=== PATIENT | female | born 1985 | race Caucasian/White ===

== ENCOUNTER 2017-03-25 16:10 | Emergency (ER) | payer OTHER ==
[~2017-03-25] VITALS: Ht 162.6 cm; Wt 107.0 kg
[2017-03-25 16:14] VITALS: Ht 162.6 cm; Wt 107.0 kg
--- NOTE | 2017-03-25 18:24 | ERD ---
ER Documentation Chief Complaint Date/Time DATE: 03/25/17 TIME: 18:21 Chief Complaint pelvic pain x 1 week, 7 weeks HPI 31-year-old female states that she is approximately 7 weeks comes emergency room with suprapubic pelvic pain for the past 1 week. She describes as sharp, localized, and has been told she had a urinary tract infection this afternoon when she was seen at an outside facility. She has not tried anything for this. She just found out she was today and due to her pain she was referred to the emergency department to rule ectopic . She denies any history of vaginal bleeding. She denies fevers or chills, shortness of breath, dizziness. ROS All systems reviewed and are negative except as per history of present illness. Medications Home Meds Active Scripts Acetaminophen* (Tylophen*) 500 Mg Capsule, 1 CAP PO Q6H Y for PAIN AND OR ELEVATED TEMP, #20 CAP Prov:AARON COSBY PA-C 03/25/17 Allergies Allergies: Coded Allergies: No Known Allergy (Unverified , 03/25/17) PMhx/Soc Medical and Surgical Hx: pt denies Medical Hx History of Surgery: Yes (Cholecystectomy) Hx Alcohol Use: No Hx Substance Use: No Hx Tobacco Use: No Physical Exam Vitals Vital Signs Date Time Temp Pulse Resp B/P Pulse Ox O2 Delivery O2 Flow Rate FiO2 03/25/17 16:14 99.0 112 18 160/98 98 Physical Exam General: Well-developed, well-nourished. The patient appears in no acute distress. HEENT: Head is normocephalic, atraumatic. No scleral icterus. Neck: Supple. Nontender. Lungs: Clear to auscultation. Normal air movement. Heart: Regular rate and rhythm. S1 and S2 are normal. No murmurs, gallops, or rubs. Abdomen: Soft, suprapubic tenderness nondistended. Bowel sounds are normoactive. : All disclose, no bleeding, no CMT tenderness. Extremities: No clubbing or cyanosis. Normal pulses. Moving extremities x 4. No weakness. Neurologic: Alert and oriented 3. No focal deficits. Skin: Normal turgor. No rash or lesions. Result Diagram: 03/25/17 3376 Results 24 hrs Laboratory Tests Test 03/25/17 18:45 White Blood Count 14.310^3/ul Red Blood Count 4.6210^6/ul Hemoglobin 13.2g/dl Hematocrit 38.4% Mean Corpuscular Volume 83.1fl Mean Corpuscular Hemoglobin 28.6pg Mean Corpuscular Hemoglobin Concent 34.4g/dl Red Cell Distribution Width 13.0% Platelet Count 68729^3/UL Mean Platelet Volume 9.2fl Neutrophils % 74.2% Lymphocytes % 18.2% Monocytes % 6.2% Eosinophils % 0.6% Basophils % 0.2% Nucleated Red Blood Cells % 0.0/100WBC Neutrophils # 10.610^3/ul Lymphocytes # 2.610^3/ul Monocytes # 0.910^3/ul Eosinophils # 0.110^3/ul Basophils # 0.010^3/ul Nucleated Red Blood Cells # 0.010^3/ul Urine Color YELLOW Urine Clarity SLIGHTLY CLOUDY Urine pH 7.0 Urine Specific [place] 1.012 Urine Ketones NEGATIVEmg/dL Urine Nitrite NEGATIVEmg/dL Urine Bilirubin NEGATIVEmg/dL Urine Urobilinogen NEGATIVEmg/dL Urine Leukocyte Esterase NEGATIVELeu/ul Urine Microscopic RBC 1/HPF Urine Microscopic WBC 1/HPF Urine Squamous Epithelial Cells FEW/HPF Urine Bacteria FEW/HPF Urine Hemoglobin 2+mg/dL Urine Glucose NEGATIVEmg/dL Urine Total Protein NEGATIVEmg/dl Beta HCG, Quantitative 1895.6mIU/ml Current Medications Medications (Trade) Dose Ordered Sig/[place] Route PRN Reason Start Time Stop Time Status Last Admin Dose Admin Acetaminophen (Tylenol Tab) 650 mg ONCE ONCE PO 03/25/17 18:30 03/25/17 18:31 DC 03/25/17 18:41 Procedures/MDM ED course: Patient was medicated with Tylenol. Medical decision making: This 31-year-old female presents with pelvic pain and is , there is evidence of intrauterine gestational sac, there is no pole or yolk sac to confirm intrauterine . Beta quantitative hCG is above the discriminatory zone at approximately 1800. I spoke with the OB , Dr. Toussaint, given that there is intrauterine gestational sac, patient may be discharged home with strict ER return precautions. Ectopic cannot be ruled out at this time and patient was notified. Departure Diagnosis: Primary Impression: Pelvic pain during Condition: Stable AARON COSBY PA-C Mar 25, 2017 18:24
[2017-03-25] MEDS ORDERED: ACETAMINOPHEN 325 MG TAB PO ONE (18:30)
[2017-03-25 18:54] LABS: BASOPHILS % 0.2 % (0.0-2.0); EOSINOPHILS # 0.1 10^3/ul (0.0-0.5); EOSINOPHILS % 0.6 % (0.0-7.0); HEMATOCRIT 38.4 % (37.0-47.0); HEMOGLOBIN 13.2 g/dl (12.0-16.0); LYMPHOCYTES # 2.6 10^3/ul (0.8-2.9); LYMPHOCYTES % 18.2 % (15.0-51.0); MEAN CORPUSCULAR HEMOGLOBIN 28.6 pg (29.0-33.0); MEAN CORPUSCULAR HGB CONC 34.4 g/dl (32.0-37.0); MEAN CORPUSCULAR VOLUME 83.1 fl (82.0-101.0); MEAN PLATELET VOLUME 9.2 fl (7.4-10.4); MONOCYTE # 0.9 10^3/ul (0.3-0.9); MONOCYTES % 6.2 % (0.0-11.0); NEUTROPHIL # 10.6 10^3/ul (1.6-7.5); NEUTROPHILS % 74.2 % (39.0-77.0); PLATELET COUNT 357 10^3/UL (140-415); RED BLOOD COUNT 4.62 10^6/ul (4.20-5.40); WHITE BLOOD COUNT 14.3 10^3/ul (4.8-10.8)
[2017-03-25 18:57] LABS: ADD UMIC YES; UR ASCORBIC ACID NEGATIVE (NEGATIVE); UR BACTERIA FEW /HPF (NONE SEEN); UR BILIRUBIN (Dip) NEGATIVE (NEGATIVE); UR BLOOD (Dip) 2+ mg/dL (NEGATIVE); UR CLARITY SLIGHTLY CLOUDY (CLEAR); UR COLOR YELLOW (YELLOW); UR GLUCOSE (Dip) NEGATIVE (NEGATIVE); UR KETONES (Dip) NEGATIVE (NEGATIVE); UR LEUKOCYTE ESTERASE (Dip) NEGATIVE Leu/ul (NEGATIVE); UR NITRITE (Dip) NEGATIVE (NEGATIVE); UR RBC 1 /HPF (0-5); UR SPECIFIC GRAVITY (Dip) 1.012 (1.003-1.030); UR SQUAMOUS EPITHELIAL CELL FEW /HPF (FEW); UR TOTAL PROTEIN (Dip) NEGATIVE (NEGATIVE); UR UROBILINOGEN (Dip) NEGATIVE (NEGATIVE)
--- NOTE | 2017-03-25 19:07 | RADRPT ---
PROCEDURE: OB Ultrasound. CLINICAL INDICATION: Positive test. Pelvic pain. TECHNIQUE: Ultrasound of the pelvis was performed with transabdominal and transvaginal sonography in the axial and sagittal planes. COMPARISON: No prior study is available for comparison. FINDINGS: There is a single intrauterine gestational sac. pole and yolk sac are not visualized. Mean sac diameter is 0.45 cm. Menstrual age by ultrasound dates is 5 weeks 0 days. This indicates an expected date of delivery of 11/25/2017. The right ovary appears normal measuring 3.9 x 2.2 x 2.7 cm. The left ovary appears normal measuring 3.0 x 1.9 x 2.1 cm. Color Doppler and pulsed Doppler sonography demonstrate normal flow to the ovaries. There is no other pelvic mass or free fluid. IMPRESSION: 1. Single early intrauterine gestational sac. It is too early to visualize pole or yolk sac. Follow-up ultrasound in 2 weeks is advised. 2. Otherwise unremarkable study. RPTAT: QQ .Antonio Barrientos MD, MD Date Time Electronically viewed and signed by .Antonio Barrientos MD, on 03/25/2017 19:06 .R/
[2017-03-25] MEDS ORDERED: ACET500C5 PO (20:24)
== END 2017-03-25 21:00 | disposition home or self-care (01) ==
LOC: FTE 16:10
DX: O26.891 Other specified pregnancy related conditions, first trimester (principal); R10.2 Pelvic and perineal pain; Z3A.01 Less than 8 weeks gestation of pregnancy
CPT/HCPCS: 76801; 76817; 81001; 84702; 85025; 86900; 86901; Z7610; 36415

== ENCOUNTER 2017-03-27 07:14 | Emergency (ER) | payer OTHER ==
[~2017-03-27] VITALS: Ht 162.6 cm; Wt 106.0 kg
[~2017-03-27 07:14] MED LIST: ACET500C5 PO
[2017-03-27 07:17] VITALS: Ht 162.6 cm; Wt 106.0 kg
--- NOTE | 2017-03-27 08:20 | RADRPT ---
PROCEDURE: OB Ultrasound. CLINICAL INDICATION: Positive test. Vaginal bleeding. TECHNIQUE: Ultrasound of the pelvis was performed with transabdominal and transvaginal sonography in the axial and sagittal planes. COMPARISON: No prior study is available for comparison. FINDINGS: There is a single intrauterine gestational sac. pole and yolk sac are not visualized. Mean sac diameter is 0.66 cm. There is a small subchorionic hemorrhage. Menstrual age by ultrasound dates is 5 weeks 2 dates. This indicates an expected date of delivery of 11/25/2017. The right ovary appears normal measuring 4.6 x 2.4 x 2.3 cm. The left ovary appears normal measuring 1.3 x 2.1 x 3.9 cm. Color Doppler and pulsed Doppler sonography demonstrate normal flow to the ovaries. There is no other pelvic mass or free fluid. IMPRESSION: 1. Single early intrauterine gestational sac measuring 0.66 cm. It is too early to visualize pole or yolk sac. Follow-up ultrasound in 2 weeks is advised. 2. Small subchorionic hemorrhage. 3. Otherwise unremarkable study. RPTAT: QQ .Antonio Barrientos MD, MD Date Time Electronically viewed and signed by .Antonio Barrientos MD, on 03/27/2017 08:19 .R/
--- NOTE | 2017-03-27 09:24 | ERD ---
ER Documentation Chief Complaint Date/Time DATE: 03/27/17 TIME: 09:23 Chief Complaint Recheck HCG levels HPI Patient is a 31-year-old female with no medical problems who presents for pelvic pain. The patient was seen 2 days ago for pelvic pain since she is and had a quantitative hCG that was 1800. She had an ultrasound which showed a sac but no pole. The patient was told to return in 2 days for repeat quantitative hCG. She is still having pelvic pain. She denies vaginal bleeding. She said the pain is still there but it is still better. She tried Tylenol for pain. The patient goes to the [facility] for her primary care. ROS All systems reviewed and are negative except as per history of present illness. Medications Home Meds Active Scripts Acetaminophen* (Tylophen*) 500 Mg Capsule, 1 CAP PO Q6H Y for PAIN AND OR ELEVATED TEMP, #20 CAP Prov:AARON COSBY PA-C 03/25/17 Allergies Allergies: Coded Allergies: No Known Allergy (Unverified , 03/27/17) PMhx/Soc History of Surgery: Yes (Cholecystectomy) Hx Alcohol Use: No Hx Substance Use: No Hx Tobacco Use: No FmHx Family History: diabetes Physical Exam Vitals Vital Signs Date Time Temp Pulse Resp B/P Pulse Ox O2 Delivery O2 Flow Rate FiO2 03/27/17 07:17 99.0 92 18 150/70 98 Physical Exam Const: Mild distress secondary to pain Head: Atraumatic Eyes: Normal Conjunctiva ENT: Normal External Ears, Nose and Mouth. Neck: Full range of motion..~ No meningismus. Resp: Clear to auscultation bilaterally Cardio: Regular rate and rhythm, no murmurs Abd: Soft, lower pelvic pain without rebound or guarding Skin: No petechiae or rashes Back: No midline or flank tenderness Ext: No cyanosis, or edema Neur: Awake and alert Psych: Normal Mood and Affect Results 24 hrs Laboratory Tests Test 03/27/17 07:40 Beta HCG, Quantitative 3865.5mIU/ml Procedures/MDM PROCEDURE: OB Ultrasound. CLINICAL INDICATION: Positive test. Vaginal bleeding. TECHNIQUE: Ultrasound of the pelvis was performed with transabdominal and transvaginal sonography in the axial and sagittal planes. COMPARISON: No prior study is available for comparison. FINDINGS: There is a single intrauterine gestational sac. pole and yolk sac are not visualized. Mean sac diameter is 0.66 cm. There is a small subchorionic hemorrhage. Menstrual age by ultrasound dates is 5 weeks 2 dates. This indicates an expected date of delivery of 11/25/2017. The right ovary appears normal measuring 4.6 x 2.4 x 2.3 cm. The left ovary appears normal measuring 1.3 x 2.1 x 3.9 cm. Color Doppler and pulsed Doppler sonography demonstrate normal flow to the ovaries. There is no other pelvic mass or free fluid. IMPRESSION: 1. Single early intrauterine gestational sac measuring 0.66 cm. It is too early to visualize pole or yolk sac. Follow-up ultrasound in 2 weeks is advised. 2. Small subchorionic hemorrhage. 3. Otherwise unremarkable study. RPTAT: QQ .Antonio Barrientos MD, Date Time Electronically viewed and signed by .Antonio Barrientos MD, MD on 03/27/2017 08:19 Quantitative hCG is over 3800. Patient is a 31-year-old female presents with pelvic pain and . Ultrasound shows an early IUP but no pole or yolk sac. Quantitative hCG has doubled over the last 48 hours which may mean that this is a normal . However the potential for miscarriage is still there. At this point ectopic . I believe outpatient management is appropriate but the patient will need follow-up with her clinic within 1-2 weeks and will need a repeat ultrasound. Departure Diagnosis: Primary Impression: Threatened Condition: Fair Patient Instructions: Possible Miscarriage (Threatened ) Additional Instructions: Llame al doctor nombrado caba (Referral Sources) MAANA y chichi teresa LOWELL PARA DENTRO DE TERESA SEMANA. Dgale a la secretaria que nosotros le instruimos hacer esta lowell.Avise o llame si stewart condicin se empeora antes de la lowell. JEFFY BLOUNT MD Mar 27, 2017 09:24
== END 2017-03-27 09:07 | disposition home or self-care (01) ==
LOC: FTE 07:14
DX: O20.0 Threatened abortion (principal); Z3A.01 Less than 8 weeks gestation of pregnancy
CPT/HCPCS: 76801; 76817; 84702; Z7502

== ENCOUNTER 2017-05-16 11:13 | Emergency (ER) | payer OTHER ==
[~2017-05-16] VITALS: Ht 162.6 cm; Wt 104.5 kg
[2017-05-16 11:14] VITALS: Ht 162.6 cm; Wt 104.5 kg
--- NOTE | 2017-05-16 13:13 | RADRPT ---
PROCEDURE: US OB. CLINICAL INDICATION: Vaginal bleeding in . TECHNIQUE: Transabdominal and endovaginal imaging of the gravid uterus is available for review COMPARISON: OB ultrasound dated 03/27/2017 FINDINGS: There is a single intrauterine with a crown-rump length of 1.7 cm, giving an estimated ges tational age of 9 weeks 2 days by ultrasound criteria. No heart tones are detected. No subch orionic hemorrhage is identified. The ovaries are unremarkable. IMPRESSION: Single intrauterine with an estimated gestational age of 9 weeks 2 days by ultrasound crit eria. No heart tones are detected. There has been less than expected interval growth when co mpared to the prior examination. Findings are compatible with early failed . RPTAT: HH .Odalis Perez MD, Date Time Electronically viewed and signed by .Odalis Perez MD, on 05/16/2017 13:13 .G/
[2017-05-16 13:23] LABS: BASOPHILS % 0.1 % (0.0-2.0); EOSINOPHILS # 0.2 10^3/ul (0.0-0.5); HEMATOCRIT 38.8 % (37.0-47.0); LYMPHOCYTES # 1.8 10^3/ul (0.8-2.9); MEAN CORPUSCULAR HEMOGLOBIN 28.4 pg (29.0-33.0); MEAN CORPUSCULAR HGB CONC 33.5 g/dl (32.0-37.0); MEAN CORPUSCULAR VOLUME 84.7 fl (82.0-101.0); MEAN PLATELET VOLUME 9.6 fl (7.4-10.4); MONOCYTE # 0.5 10^3/ul (0.3-0.9); MONOCYTES % 5.6 % (0.0-11.0); NEUTROPHIL # 6.9 10^3/ul (1.6-7.5); NEUTROPHILS % 73.1 % (39.0-77.0); PLATELET COUNT 311 10^3/UL (140-415); RED BLOOD COUNT 4.58 10^6/ul (4.20-5.40); RED CELL DISTRIBUTION WIDTH 13.2 % (11.5-14.5); WHITE BLOOD COUNT 9.5 10^3/ul (4.8-10.8)
[2017-05-16 13:25] LABS: ADD UMIC YES; UR ASCORBIC ACID 40 mg/dL (NEGATIVE); UR BILIRUBIN (Dip) NEGATIVE (NEGATIVE); UR BLOOD (Dip) 1+ mg/dL (NEGATIVE); UR CLARITY SLIGHTLY CLOUDY (CLEAR); UR COLOR YELLOW (YELLOW); UR GLUCOSE (Dip) NEGATIVE (NEGATIVE); UR KETONES (Dip) NEGATIVE (NEGATIVE); UR LEUKOCYTE ESTERASE (Dip) NEGATIVE Leu/ul (NEGATIVE); UR NITRITE (Dip) NEGATIVE (NEGATIVE); UR RBC 0 /HPF (0-5); UR SPECIFIC GRAVITY (Dip) 1.021 (1.003-1.030); UR SQUAMOUS EPITHELIAL CELL FEW /HPF (FEW); UR TOTAL PROTEIN (Dip) NEGATIVE (NEGATIVE); UR UROBILINOGEN (Dip) NEGATIVE (NEGATIVE)
--- NOTE | 2017-05-16 14:27 | ERD ---
ER Documentation Chief Complaint Date/Time DATE: 05/16/17 TIME: 14:23 Chief Complaint VAGINAL BLEEDING AND BACK PAIN - LMP 02/01/17 HPI 31 year old female comes in [place] with last menstrual period February 01 with vaginal bleeding and back pain. She states that she has had a very small amount of bleeding, and no longer has had. She denies she noted that this morning. Patient has had 2 other pelvic ultrasound, at 6 weeks she states that she did see a heartbeat, and then 2 days ago she had an ultrasound done that did not show any evidence of a heartbeat and she was told that the sac looks smaller than it should be. She has not had any fevers, chills, dizziness. ROS All systems reviewed and are negative except as per history of present illness. Medications Home Meds Active Scripts Acetaminophen* (Tylophen*) 500 Mg Capsule, 1 CAP PO Q6H Y for PAIN AND OR ELEVATED TEMP, #20 CAP Prov:AARON COSBY PA-C 03/25/17 Allergies Allergies: Coded Allergies: No Known Allergy (Unverified , 03/27/17) PMhx/Soc History of Surgery: Yes (Cholecystectomy) Hx Alcohol Use: No Hx Substance Use: No Hx Tobacco Use: No Physical Exam Vitals Vital Signs Date Time Temp Pulse Resp B/P Pulse Ox O2 Delivery O2 Flow Rate FiO2 05/16/17 11:14 98.7 91 19 157/91 96 Physical Exam General: Well-developed, well-nourished. The patient appears in no acute distress. HEENT: Head is normocephalic, atraumatic. No scleral icterus. Neck: Supple. Nontender. Lungs: Clear to auscultation. Normal air movement. Heart: Regular rate and rhythm. S1 and S2 are normal. No murmurs, gallops, or rubs. Abdomen: Soft, nontender, nondistended. Bowel sounds are normoactive. Extremities: No clubbing or cyanosis. Normal pulses. Moving extremities x 4. No weakness. Neurologic: Alert and oriented 3. No focal deficits. Skin: Normal turgor. No rash or lesions. Result Diagram: 05/16/17 1305 Results 24 hrs Laboratory Tests Test 05/16/17 13:05 White Blood Count 9.510^3/ul Red Blood Count 4.5810^6/ul Hemoglobin 13.0g/dl Hematocrit 38.8% Mean Corpuscular Volume 84.7fl Mean Corpuscular Hemoglobin 28.4pg Mean Corpuscular Hemoglobin Concent 33.5g/dl Red Cell Distribution Width 13.2% Platelet Count 09920^3/UL Mean Platelet Volume 9.6fl Neutrophils % 73.1% Lymphocytes % 19.0% Monocytes % 5.6% Eosinophils % 2.0% Basophils % 0.1% Nucleated Red Blood Cells % 0.0/100WBC Neutrophils # 6.910^3/ul Lymphocytes # 1.810^3/ul Monocytes # 0.510^3/ul Eosinophils # 0.210^3/ul Basophils # 0.010^3/ul Nucleated Red Blood Cells # 0.010^3/ul Urine Color YELLOW Urine Clarity SLIGHTLY CLOUDY Urine pH 5.0 Urine Specific [place] 1.021 Urine Ketones NEGATIVEmg/dL Urine Nitrite NEGATIVEmg/dL Urine Bilirubin NEGATIVEmg/dL Urine Urobilinogen NEGATIVEmg/dL Urine Leukocyte Esterase NEGATIVELeu/ul Urine Microscopic RBC 0/HPF Urine Microscopic WBC 2/HPF Urine Squamous Epithelial Cells FEW/HPF Urine Hemoglobin 1+mg/dL Urine Glucose NEGATIVEmg/dL Urine Total Protein NEGATIVEmg/dl Beta HCG, Quantitative 1487.7mIU/ml DIAGNOSTIC IMAGING REPORT Patient: RADHA SOLANO : 1985 Age: 31 Sex: F MR #: [id number] DOS: 05/16/17 1248 Ordering MD: AARON COSBY PA-C Location: [facility] Room/Bed: PROCEDURE: US OB. CLINICAL INDICATION: Vaginal bleeding in . TECHNIQUE: Transabdominal and endovaginal imaging of the gravid uterus is available for review COMPARISON: OB ultrasound dated 03/27/2017 FINDINGS: There is a single intrauterine with a crown-rump length of 1.7 cm, giving an estimated gestational age of 9 weeks 2 days by ultrasound criteria. No heart tones are detected. No subchorionic hemorrhage is identified. The ovaries are unremarkable. IMPRESSION: Single intrauterine with an estimated gestational age of 9 weeks 2 days by ultrasound criteria. No heart tones are detected. There has been less than expected interval growth when compared to the prior examination. Findings are compatible with early failed . RPTAT: HH .Odalis Perez MD, MD Date Time Electronically viewed and signed by .Odalis Perez MD, on 05/16/2017 13 :13 .G/ Procedures/MDM 31-year-old female comes in with an intrauterine , size is measured to be at 9 weeks and 2 days without evidence of heart tones. This is patient 's second pelvic ultrasound this week without any heart tones. This is likely a threatened versus a failed . She was given copies of her ultrasound and her blood work and was advised to follow-up with her OB in the next 3-4 days. There are no signs of ectopic . Patient is type and Rh + without indication RhoGam. Departure Diagnosis: Primary Impression: Threatened Condition: Good Patient Instructions: Possible Miscarriage (Threatened ) Additional Instructions: Patient was advised to follow-up with their OB in 3-4 days for a recheck examination. If they were to develop any worsening symptoms sooner, including heavy vaginal bleeding or pelvic pain, they are to return to the ER for further evaluation. AARON COSBY PA-C May 16, 2017 14:27
== END 2017-05-16 14:26 | disposition home or self-care (01) ==
LOC: FTE 11:13
DX: O20.0 Threatened abortion (principal); Z3A.09 9 weeks gestation of pregnancy
CPT/HCPCS: 36415; 76801; 81001; 84702; 85025; 86900; 86901; Z7502

== ENCOUNTER → 2017-05-17 | Day surgery (SDC) | payer OTHER ==
[2017-05-17] VITALS (10 sets, daily range): BP systolic 115–121; BP diastolic 60–72; PULSE 74–95; RESP 12–22; TEMP 98.4; Ht 162.6 cm; Wt 103.0 kg
[~2017-05-17] VITALS: Ht 162.6 cm; Wt 103.0 kg
[~2017-05-17] MED LIST changes: +DIPHENHYDRAMINE 50 MG INJ IV PRN; +FENTAnyl 50 MCG/ML VIAL IV PRN; +FENTAnyl 50 MCG/ML VIAL ONE; +HYDROmorphONE (0.2 MG/ML) 10ML SYG IV PRN; +HYDROmorphONE 1 MG/ML SYG IV STA; +LIDOCAINE 2% (SDV) 5 ML INJ ONE; +MEPERIDINE 25 MG INJ IV PRN; +METOCLOPRAMIDE 10 MG INJ IV ONE; +METOCLOPRAMIDE 10 MG INJ IV PRN; +ONDANSETRON 4 MG INJ IV PRN; +ONDANSETRON 4 MG INJ IV STA; +ONDANSETRON 4 MG INJ ONE; +OXYTOCIN 10 UNIT INJ ONE; +PROPOFOL 20 ML ONE; +SOD CHLORIDE 0.9% 1,000 ML IV ONE; +SUCCINYLCHOLINE CHLORIDE 100 MG/5 ML SYG IV ONE; +SUGAMMADEX SODIUM 200 MG/2 ML VIAL IV ONE; +morphine 4 MG/ML VIAL IV STA
[2017-05-17 01:40] LABS: BASOPHILS % 0.2 % (0.0-2.0); EOSINOPHILS # 0.2 10^3/ul (0.0-0.5); EOSINOPHILS % 1.6 % (0.0-7.0); HEMATOCRIT 39.6 % (37.0-47.0); LYMPHOCYTES # 3.3 10^3/ul (0.8-2.9); MEAN CORPUSCULAR HEMOGLOBIN 27.9 pg (29.0-33.0); MEAN CORPUSCULAR HGB CONC 32.8 g/dl (32.0-37.0); MEAN PLATELET VOLUME 9.7 fl (7.4-10.4); MONOCYTE # 1.1 10^3/ul (0.3-0.9); MONOCYTES % 7.7 % (0.0-11.0); NEUTROPHIL # 9.2 10^3/ul (1.6-7.5); NEUTROPHILS % 66.2 % (39.0-77.0); PLATELET COUNT 318 10^3/UL (140-415); RED BLOOD COUNT 4.66 10^6/ul (4.20-5.40); RED CELL DISTRIBUTION WIDTH 13.5 % (11.5-14.5); WHITE BLOOD COUNT 13.8 10^3/ul (4.8-10.8)
--- NOTE | 2017-05-17 02:43 | RADRPT ---
PROCEDURE: US OB. CLINICAL INDICATION: Vaginal bleeding, , pain TECHNIQUE: Transabdominal views of the pelvis are available for review. COMPARISON: 05/16/2017 FINDINGS: The intrauterine gestational sac is in the lower uterine body and lower uterine segment . [place]-rump length:1.78 cm heart rate:No embryonic heart activity seen. Ultrasound estimated gestational age based on embryo crown-rump length:8 weeks 2 days Neither ovary seen. No adnexal mass or free intrapelvic fluid is seen. IMPRESSION: Failed intrauterine . The intrauterine gestational sac is in the lower uterine body and lo wer uterine segment which could be secondary to spontaneous in progress. RPTAT: HJES .Jonathan Major MD, MD Date Time Electronically viewed and signed by .Jonathan Major MD, on 05/17/2017 02:43 .S/
--- NOTE | 2017-05-17 03:01 | ERD ---
ER Documentation Chief Complaint Date/Time DATE: 05/17/17 Chief Complaint Vaginal bleeding, . Seen this AM for same symptoms. Increased bleeding. ROS All systems reviewed and are negative except as per history of present illness. Medications Home Meds Active Scripts Acetaminophen* (Tylophen*) 500 Mg Capsule, 1 CAP PO Q6H Y for PAIN AND OR ELEVATED TEMP, #20 CAP Prov:AARON COSBY PA-C 03/25/17 Allergies Allergies: Coded Allergies: No Known Allergy (Unverified , 03/27/17) PMhx/Soc Medical and Surgical Hx: pt denies Medical Hx, pt denies Surgical Hx History of Surgery: Yes (Cholecystectomy) Hx Alcohol Use: No Hx Substance Use: No Hx Tobacco Use: No Physical Exam Vitals Vital Signs Date Time Temp Pulse Resp B/P Pulse Ox O2 Delivery O2 Flow Rate FiO2 05/17/17 00:44 98.4 81 20 134/91 100 Physical Exam Const: [] Head: Atraumatic Eyes: Normal Conjunctiva ENT: Normal External Ears, Nose and Mouth. Neck: Full range of motion..~ No meningismus. Resp: Clear to auscultation bilaterally Cardio: Regular rate and rhythm, no murmurs Abd: Soft, non tender, non distended. Normal bowel sounds Skin: No petechiae or rashes Back: No midline or flank tenderness Ext: No cyanosis, or edema Neur: Awake and alert Psych: Normal Mood and Affect Result Diagram: 05/17/17 0120 Results 24 hrs Laboratory Tests Test 05/17/17 01:20 White Blood Count 13.810^3/ul Red Blood Count 4.6610^6/ul Hemoglobin 13.0g/dl Hematocrit 39.6% Mean Corpuscular Volume 85.0fl Mean Corpuscular Hemoglobin 27.9pg Mean Corpuscular Hemoglobin Concent 32.8g/dl Red Cell Distribution Width 13.5% Platelet Count 40453^3/UL Mean Platelet Volume 9.7fl Neutrophils % 66.2% Lymphocytes % 24.0% Monocytes % 7.7% Eosinophils % 1.6% Basophils % 0.2% Nucleated Red Blood Cells % 0.0/100WBC Neutrophils # 9.210^3/ul Lymphocytes # 3.310^3/ul Monocytes # 1.110^3/ul Eosinophils # 0.210^3/ul Basophils # 0.010^3/ul Nucleated Red Blood Cells # 0.010^3/ul Beta HCG, Quantitative 1165.7mIU/ml Current Medications Medications (Trade) Dose Ordered Sig/[place] Route PRN Reason Start Time Stop Time Status Last Admin Dose Admin Ondansetron HCl (Zofran Inj) 4 mg ONCE STAT IV 05/17/17 01:09 05/17/17 01:10 DC 05/17/17 01:30 Morphine Sulfate (morphine) 4 mg ONCE STAT IV 05/17/17 01:09 05/17/17 01:10 DC 05/17/17 01:27 Morphine Sulfate (morphine) 4 mg ONCE STAT IV 05/17/17 01:41 05/17/17 01:42 DC 05/17/17 02:13 Ondansetron HCl 4 mg 4 mg ONCE STAT IV 05/17/17 02:45 05/17/17 02:46 DC Sodium Chloride 1,000 ml @ 1,000 mls/hr Q1H ONCE IV 05/17/17 03:00 05/17/17 03:59 Sodium Chloride (NS) 1,000 ml @ 1,000 mls/hr Q1H ONCE IV 05/17/17 03:00 05/17/17 03:59 Hydromorphone HCl (Dilaudid) 1 mg ONCE STAT IV 05/17/17 02:49 05/17/17 02:50 DC Departure Condition: Stable RACHEL GRANADOS PA-C May 17, 2017 03:01
--- NOTE | 2017-05-17 03:01 | ERA ---
ER Documentation Chief Complaint Date/Time DATE: 05/17/17 Chief Complaint Vaginal bleeding, . Seen this AM for same symptoms. Increased bleeding. HPI The patient is a 31-year-old female, A0, who presents to the emergency department with complaint of vaginal bleeding. The patient reports that her last menstrual period was 02/01/2017, and she believes that she is approximately 12 weeks . The patient states that this morning she developed vaginal bleeding. Therefore, she presented to the emergency department, at which time laboratory testing and ultrasound imaging was performed. Beta hCG was noted to be 1487.7. Ultrasound performed revealed single intrauterine with an estimated gestational age of 9 weeks 2 days by ultrasound criteria. No heart tones were detected. Patient was noted to be Rh+, and therefore RhoGam was not indicated. She was discharged home with a diagnosis of threatened , and advised that her symptoms are likely consistent with failed . The patient reports that upon returning home her bleeding had resolved. However, at approximately 7:00 PM tonight she developed recurrent, but significantly worsening vaginal bleeding with associated passage of clots. She reports significant associated pain and cramping, rating her current discomfort as 8/10, prompting the visit to the emergency department. She denies any fevers, sweats, chills. Admits to nausea but denies vomiting. Denies diarrhea. Denies black or bloody stools. Denies dysuria, flank pain, chest pain, palpitations, shortness of breath or lower extremity swelling. The patient last ate/drank anything at 7:00 pm. ROS All systems reviewed and are negative except as per history of present illness. Medications Home Meds Active Scripts Acetaminophen* (Tylophen*) 500 Mg Capsule, 1 CAP PO Q6H Y for PAIN AND OR ELEVATED TEMP, #20 CAP Prov:AARON COSBY PA-C 03/25/17 Allergies Allergies: Coded Allergies: No Known Allergy (Unverified , 03/27/17) PMhx/Soc Medical and Surgical Hx: pt denies Medical Hx, pt denies Surgical Hx History of Surgery: Yes (Cholecystectomy) Hx Alcohol Use: No Hx Substance Use: No Hx Tobacco Use: No Physical Exam Vitals Vital Signs Date Time Temp Pulse Resp B/P Pulse Ox O2 Delivery O2 Flow Rate FiO2 05/17/17 03:10 95 20 130/85 100 Room Air 05/17/17 00:44 98.4 81 20 134/91 100 Physical Exam GENERAL: Well-developed, well-nourished, female, in mild to moderate distress secondary to pain. HEENT: Head is normocephalic, atraumatic. No scleral pallor or icterus. Conjunctiva pink. Moist mucous membranes. NECK: Supple. RESPIRATORY: Lungs are clear to auscultation bilaterally. No rales, rhonchi or wheezing. Equal breath sounds. Normal expiratory effort. CARDIOVASCULAR: Regular rate and rhythm. S1 and S2 normal. Distal pulses are palpable, 2+ bilaterally. Capillary refill is less than 2 seconds. GASTROINTESTINAL: Abdomen is soft, non-tender, and non-distended. Normal bowel sounds. GENITOURINARY: Few blood clots within vaginal vault. POC within cervical os, which is open. No lacerations. FLANK: No CVA tenderness. BACK: No midline tenderness. EXTREMITIES: No clubbing, cyanosis, or edema. Moving all extremities. Muscle tone is normal. No focal swelling or erythema. NEUROLOGIC: The patient is alert, awake, and oriented x 3. INTEGUMENT: Skin is intact. Warm and dry. PSYCHIATRIC: Cooperative. Result Diagram: 05/17/17 0120 Results 24 hrs Laboratory Tests Test 05/17/17 01:20 White Blood Count 13.810^3/ul Red Blood Count 4.6610^6/ul Hemoglobin 13.0g/dl Hematocrit 39.6% Mean Corpuscular Volume 85.0fl Mean Corpuscular Hemoglobin 27.9pg Mean Corpuscular Hemoglobin Concent 32.8g/dl Red Cell Distribution Width 13.5% Platelet Count 24348^3/UL Mean Platelet Volume 9.7fl Neutrophils % 66.2% Lymphocytes % 24.0% Monocytes % 7.7% Eosinophils % 1.6% Basophils % 0.2% Nucleated Red Blood Cells % 0.0/100WBC Neutrophils # 9.210^3/ul Lymphocytes # 3.310^3/ul Monocytes # 1.110^3/ul Eosinophils # 0.210^3/ul Basophils # 0.010^3/ul Nucleated Red Blood Cells # 0.010^3/ul Beta HCG, Quantitative 1165.7mIU/ml Current Medications Medications (Trade) Dose Ordered Sig/[place] Route PRN Reason Start Time Stop Time Status Last Admin Dose Admin Ondansetron HCl (Zofran Inj) 4 mg ONCE STAT IV 05/17/17 01:09 05/17/17 01:10 DC 05/17/17 01:30 Morphine Sulfate (morphine) 4 mg ONCE STAT IV 05/17/17 01:09 05/17/17 01:10 DC 05/17/17 01:27 Morphine Sulfate (morphine) 4 mg ONCE STAT IV 05/17/17 01:41 05/17/17 01:42 DC 05/17/17 02:13 Ondansetron HCl 4 mg 4 mg ONCE STAT IV 05/17/17 02:45 05/17/17 02:46 DC 05/17/17 02:45 Sodium Chloride 1,000 ml @ 1,000 mls/hr Q1H ONCE IV 05/17/17 03:00 05/17/17 03:59 05/17/17 02:45 Sodium Chloride (NS) 1,000 ml @ 1,000 mls/hr Q1H ONCE IV 05/17/17 03:00 05/17/17 03:59 Hydromorphone HCl (Dilaudid) 1 mg ONCE STAT IV 05/17/17 02:49 05/17/17 02:50 DC 05/17/17 02:55 Hydromorphone HCl (Dilaudid) 0.5 mg ONCE STAT IV 05/17/17 03:18 05/17/17 03:19 DC Procedures/MDM EMERGENCY DEPARTMENT COURSE: The patient's case was reviewed and discussed with Dr. Puga, who agrees with the plan of care including labs, treatment and imaging as appropriate. Recommend HOTEL SERVICE SUPERVISOR consultation after pelvic examination. IV access established by nursing staff. Laboratory testing and ultrasound imaging performed. Morphine and Dilaudid were administered for pain control. Zofran and then Reglan given for nausea. On reevaluation, the patient reports no new complaints, but continues to experience significant pain and cramping. CONSULTATION: Dr. Toussaint, HOTEL SERVICE SUPERVISOR on-call. Discussed patient case with Dr. Toussaint, who accepts patient for admission to [facility]. She will take the patient to the OR for suction and curettage. This was discussed with the patient, who agrees with plan. DIAGNOSTIC TESTS AND INTERPRETATION: PROCEDURE: US OB. CLINICAL INDICATION: Vaginal bleeding, , pain TECHNIQUE: Transabdominal views of the pelvis are available for review. COMPARISON: 05/16/2017 FINDINGS: The intrauterine gestational sac is in the lower uterine body and lower uterine segment . [place]-rump length: 1.78 cm heart rate: No embryonic heart activity seen. Ultrasound estimated gestational age based on embryo crown-rump length: 8 weeks 2 days Neither ovary seen. No adnexal mass or free intrapelvic fluid is seen. IMPRESSION:Failed intrauterine . The intrauterine gestational sac is in the lower uterine body and lower uterine segment which could be secondary to spontaneous in progress. .Jonathan Major MD, MD Date Time Electronically viewed and signed by .Jonathan Major MD, MD on 05/17/2017 02:43 MEDICAL DECISION MAKING: This is a 31-year-old female presenting to the Emergency Department complaining of vaginal bleeding. Patient was initially seen in the emergency department this morning, at which time intrauterine was noted with no heart tones. She was discharged home, and her bleeding had resolved. However, this evening her bleeding recurred, with onset of heavier vaginal bleeding and passage of several large clots. She presents to due to heavy bleeding and significant pain she presented to the emergency department for further evaluation. Genitourinary examination revealed POC within the open cervical office. Few blood clots in the vaginal vault. Vital signs were stable. Differential diagnosis includes, but is not limited to, ectopic , cervicitis, fibroids, molar , implantation bleeding, heterotopic , septic , missed , incomplete , inevitable , threatened , complete , coagulopathy, fibroids, adenomyosis, endometriosis, neoplasia, vaginitis, PID, vaginal trauma, dysfunctional uterine bleeding. Hemoglobin and hematocrit are stable, no significant anemia noted. Beta hCG is 1165.7, decreased from 1487.7 from this morning. Rh (+), no indication for RhoGAM. Ultrasound performed revealed a failed intrauterine . The intrauterine gestational sac is noted in the lower uterine body and lower uterine segment which could be secondary to spontaneous in progress. Patient was given several doses of Morphine, followed by several doses of Dilaudid, with persistent pain. Zofran, and then Reglan were administered for antiemetic effect. Given findings of incomplete , severe pain, the patient's case was discussed with Dr. Toussaint, HOTEL SERVICE SUPERVISOR specialist on-call, who recommends suction and curretage. At this time, the patient will be admitted to Med/Surg, under the care of Dr. Toussaint, for further evaluation and management. She will take her to the OR for treatment. Departure Diagnosis: Primary Impression: Incomplete Condition: Stable RACHEL GRANADOS PA-C May 17, 2017 03:01
[2017-05-17 03:27] LABS: INR 0.99; PROTIME 13.1 Sec (12.2-14.2)
--- NOTE | 2017-05-17 05:32 | HP ---
Date/Time of Note Date/Time of Note DATE: 05/17/17 TIME: 05:24 Assessment/Plan VTE Prophylaxis VTE Prophylaxis Intervention: ambulation Lines/Catheters Central line still needed: Yes Assessment/Plan Assessment/Plan missed /impending plan suction curettage HPI/ROS Admit Date/Time Admit Date/Time 05/17/17 Hx of Present Illness 31y.o primigravida LMP February 01 presented ER with vaginal bleeding on 05/16/17 ,U/S done which revealed 9w2d which was small for GA and also noFHT but sent home and came back with profuse vaginal bleeding and severe pelvic cramping pain prepare for suction curettage for impending . ROS vaginal bleeding and pelvic cramping pain Constitutional: improved, no complaints PMH/Family/Social Past Medical History Medical History: no pertinent history Past Surgical History Past Surgical Hx: no surgical history Family History Significant Family History: no pertinent family hx Social History Smoking Status: Never smoker Drug Use: none, cocaine Exam/Review of Systems Vital Signs Vitals Vital Signs Date Time Temp Pulse Resp B/P Pulse Ox O2 Delivery O2 Flow Rate FiO2 05/17/17 04:52 98.4 87 17 118/77 99 Room Air Exam Constitutional: alert, oriented, well developed Genitourinary - Female: other (vaginal bleeding), uterus Labs Result Diagram: 05/17/17 0120 MALACHI DODSON MD May 17, 2017 05:32
--- NOTE | 2017-05-17 05:44 | CONS ---
Date/Time of Note Date/Time of Note DATE: 05/17/17 TIME: 05:34 Assessment/Plan Assessment/Plan Chief Complaint/Hosp Course MISSED /IMPENDING PLAN SUCTION CURETTAGE Problems: Consultation Date/Type/Reason Admit Date/Time 05/17/17 Date of Consultation: May 17, 2017 Type of Consultation: blood bank technician Reason for Consultation vaginal bleeding Hx of Present Illness 31y.o primigravida whos LMP was February 01 was seen at ER on 05/16/17 for vaginal spotting when they did u/s which revealed CRL 1.7 cm which was comparable with 9w2d of GA but FHT, but sent home and she return to ER this am with profuse bleeding with severe pelvic cramping pain. suction curettage is prepared for impending which causing heavy vaginal bleeding and severe pelvic pain. vaginal bleeding and pelvic cramping pain Constitutional: improved, no complaints Genitourinary: bleeding, discharge, dysuria, flank pain, hematuria, no complaints, other Past Medical History Medical History: no pertinent history Past Surgical History Past Surgical Hx: no surgical history Family History Significant Family History: no pertinent family hx Social History Alcohol Use: none Smoking Status: Never smoker Drug Use: none, cocaine Exam/Review of Systems Vital Signs Vitals Vital Signs Date Time Temp Pulse Resp B/P Pulse Ox O2 Delivery O2 Flow Rate FiO2 05/17/17 04:52 98.4 87 17 118/77 99 Room Air Exam Constitutional: alert, oriented, well developed Psych: nl mood/affect, no complaints Head: atraumatic, normocephalic Eyes: EOMI, PERRL, nl conjunctiva, nl lids, nl sclera ENMT: nl external ears & nose, nl lips & teeth, nl nasal mucosa & septum Neck: non-tender, supple Respiratory: clear to auscultation, normal air movement Cardiovascular: nl pulses, regular rate and rhythm Gastrointestinal: nl liver, spleen, non-tender, soft Genitourinary - Female: uterus (enlarged with 1.7cm with fht) Musculoskeletal: nl extremities to inspection, nl gait and stance Extremities: normal pulses Neurological: 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 AND 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 II-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 intact, nl mental status, nl speech, nl strength Skin: nl turgor, No rash or lesions Lymph: nl lymph nodes Results Result Diagram: 05/17/17 0120 Results 24 hrs Laboratory Tests Test 05/17/17 01:20 05/17/17 03:00 05/17/17 03:53 White Blood Count 13.8 #H Red Blood Count 4.66 Hemoglobin 13.0 Hematocrit 39.6 Mean Corpuscular Volume 85.0 Mean Corpuscular Hemoglobin 27.9 L Mean Corpuscular Hemoglobin Concent 32.8 Red Cell Distribution Width 13.5 Platelet Count 318 Mean Platelet Volume 9.7 Neutrophils % 66.2 Lymphocytes % 24.0 Monocytes % 7.7 Eosinophils % 1.6 Basophils % 0.2 Nucleated Red Blood Cells % 0.0 Neutrophils # 9.2 H Lymphocytes # 3.3 H Monocytes # 1.1 H Eosinophils # 0.2 Basophils # 0.0 Nucleated Red Blood Cells # 0.0 Beta HCG, Quantitative 1165.7 Prothrombin Time 13.1 Prothrombin Time Ratio 1.0 INR International Normalized Ratio 0.99 Activated Partial Thromboplast Time 25.0 Bedside Glucose 169 MALACHI DODSON MD May 17, 2017 05:44
--- NOTE | 2017-05-17 07:32 | PD.PPDC ---
PRODUCTION MACHINE TENDER Discharge Instruction Diagnosis Final Diagnosis: incomplete s/p suction curettage Condition Patient Condition: Stable Diet Diet: Resume Regular Diet Activity/Restrictions Activity: May Shower Restrictions: No Sexual Activity Nothing in the Vagina No [place] No Tampons, douche Follow-up Follow-up with Physician: 2, Week/Weeks Return to clinic for PRIMARY COUNSELOR Instructions: Fever greater than 101 Chills Worsening abdominal pain Excessive Vaginal Bleeding More than 2 pads per hour Unable to tolerate diet MALACHI DODSON MD May 17, 2017 07:32
--- NOTE | 2017-05-17 07:38 | SIPON ---
Date/Time of Note Date/Time of Note DATE: 05/17/17 TIME: 07:34 Operative Report Free Text/Dictation missed sent home came in impending by the time of procedure , half of POC on Os Preoperative Diagnosis incomplete Postoperative Diagnosis see pathologic report Operation/Procedure Performed suction curettage Surgeon tiny Anesthesia Type: general Estimated Blood Loss: 10 - 50 ml's Transfusion Required: no Specimens product of conception Grafts/Implants: none Grafts/Implants none Complications: no MALACHI DODSON MD May 17, 2017 07:38
--- NOTE | 2017-05-19 05:41 | OPR ---
DATE OF OPERATION: 05/17/2017 PREOPERATIVE DIAGNOSIS: Missed versus impending . POSTOPERATIVE DIAGNOSIS: Incomplete . OPERATIVE PROCEDURE: Suction curettage. ANESTHESIOLOGIST: ANESTHESIA: General. ESTIMATED BLOOD LOSS: 50 cc. SURGEON: Fay Toussaint MD OPERATIVE PROCEDURE: Under appropriate induction of general anesthesia, patient was placed in dorsal supine position. Perineal area and vagina wall were prepped and draped in usual aseptic manner. During the prepping, there was a small piece of the products of conception, retrieved and the bimanual examination revealed the uterus felt to be approximately 10 weeks of gestational size, soft in consistency. The surface was smooth. There was no palpable adnexal pathology. A weighted speculum introduced, cervix identified. There was tissue which appeared to be products of conception protruding through the cervical os, which was grasped with a ring forceps and cavity was sounded, which was 9.5 cm. The os was already patent enough to submit a 12 size [place]gar dilator without any resistance. The size 9 suction curette was connected to the suction and inserted into the uterine cavity. Entire uterine cavity was curetted followed by using 7 size uterine suction curette, which was again inserted and the entire cavity was suctioned, followed by recheck with sharp curette and additional scanty amount of tissue which was sent. Again 7 suction curette was inserted and curetted and suctioned again. This confirmed the emptiness. Procedure was completed. 10 units of Pitocin was given through the IV infusion. No significant bleeding noted and bimanual examination done again and the uterus was firming up on palpation. Sponge count taken and was correct. The procedure was completed. All the instrument count was correct and the patient withstood the procedure well and was sent to recovery room in stable condition. Dictated By: Fay Toussaint MD /[email or web address] /Document#: [id number]
== END | disposition home or self-care (01) ==
LOC: FTE 00:36 → SDS 05:17
PROVIDERS: ATTEND Obstetrics & Gynecology
DX: O03.4 Incomplete spontaneous abortion without complication (principal); E66.01 Morbid (severe) obesity due to excess calories; Z68.39 Body mass index [BMI] 39.0-39.9, adult; Z90.49 Acquired absence of other specified parts of digestive tract
CPT/HCPCS: 59812; 76801; 82962; 84702; 85025; 85610; 85730; 86850; 86900; 86901; 88305; J1170; J2270; J2405; J2590; J2765; J3010; J7030; Z7512; Z7610; J7999

== ENCOUNTER 2018-07-08 08:39 | Outpatient (CLI) | END 2018-07-08 16:47 | disposition home or self-care (01) ==

== ENCOUNTER 2018-09-19 10:57 | Inpatient (IN) | payer OTHER ==
[~2018-09-19] VITALS: Ht 160 cm; Wt 101.8 kg
[~2018-09-19 10:57] MED LIST changes: -ACET500C5 PO; -DIPHENHYDRAMINE 50 MG INJ IV PRN; -FENTAnyl 50 MCG/ML VIAL IV PRN; -FENTAnyl 50 MCG/ML VIAL ONE; -HYDROmorphONE (0.2 MG/ML) 10ML SYG IV PRN; -HYDROmorphONE 1 MG/ML SYG IV STA; -LIDOCAINE 2% (SDV) 5 ML INJ ONE; -MEPERIDINE 25 MG INJ IV PRN; -METOCLOPRAMIDE 10 MG INJ IV ONE; -METOCLOPRAMIDE 10 MG INJ IV PRN; -ONDANSETRON 4 MG INJ IV PRN; -ONDANSETRON 4 MG INJ IV STA; -ONDANSETRON 4 MG INJ ONE; -OXYTOCIN 10 UNIT INJ ONE; +PREN-93 PO; -PROPOFOL 20 ML ONE; -SOD CHLORIDE 0.9% 1,000 ML IV ONE; -SUCCINYLCHOLINE CHLORIDE 100 MG/5 ML SYG IV ONE; -SUGAMMADEX SODIUM 200 MG/2 ML VIAL IV ONE; -morphine 4 MG/ML VIAL IV STA
[2018-09-19 11:11] VITALS: BP 132/89; PULSE 85; Ht 160 cm; Wt 101.8 kg
--- NOTE | 2018-09-19 13:31 | TRIAGE ---
OB Triage Datetime Report Generated by CPN: 09/19/2018 13:30 Datetime: 09/19/2018 12:25 Labor Evaluation Frequency: occas Monitor Mode: External Duration (sec)2399: 60-80 Quality: Mild Pattern: Normal: <= 5 Contractions in 10 Minutes Resting Tone [place]: Relaxed Heart Rate FHR Baseline Rate: 130 Monitor Mode: External US FHR Baseline Changes: No Baseline Change Variability: Moderate 6-25 bpm Accelerations: 15X15 Decelerations: None Category: Category I Datetime: 09/19/2018 11:15 Assessment Type: Triage Maternal Assessment Level of Consciousness: Fully Conscious DTR's/Clonus: DTRs 2+; No Clonus Headache: Denies Blurred Vision: No Respiratory Effort: Unlabored; Regular Rhythm; Equal Expansion Breath Sounds, Left: Clear and Equal Breath Sounds, Right: Clear and Equal Nausea/Vomiting: Denies RUQ Epigastric Pain: Denies Lower Extremities Edema: None Degree: None Upper Extremities Edema: None Degree: None Facial Edema: None Fall Risk Assessment History of Falling: (0) No Secondary Diagnosis: (0) No Ambulatory Aid: (0) Bedrest/Nurse Assist IV Therapy: (0) No Gait: (0) Normal/Bedrest/Immobile Mental Status: (0) Oriented to Own Ability Fall Score: 0 Fall Risk Score Definition: No Risk: No action required Datetime: 09/19/2018 11:14 Time of Arrival: 09/19/2018 10:53 EGA: 37.4 Arrived By: Ambulatory Arrived From: Home Chief Complaint: DFM AND UC'S Movement: Present Contractions: Irregular Time Contractions Began: 09/19/2018 02:30 Rupture of Membranes: Denies Vaginal Bleeding: None Vaginal Discharge: Denies Recent Sexual Intercouse: Denies Abdominal Trauma: Not Applicable Patient Complaints: Other Additional Patient Complaints: GDM AND ELEVATED LIVER ENZYMES Time Provider Notified: 09/19/2018 13:24 Initial Plan: NST AND BPP Labor Evaluation Frequency: OCCAS Monitor Mode: External Duration (sec)2399: 60-90 Quality: Mild Pattern: Normal: <= 5 Contractions in 10 Minutes Resting Tone [place]: Relaxed Heart Rate FHR Baseline Rate: 135 Monitor Mode: External US Variability: Moderate 6-25 bpm Accelerations: 15X15 Decelerations: None Category: Category I Datetime: 09/19/2018 11:04 Vaginal Exam Dilatation (cms): 1.0 Effacement (%): 70 Station: -2 Exam By: A ANDERSUKACHARLAAN Datetime: 09/16/2018 16:23 Category: Category I Datetime: 09/16/2018 16:08 Stage of : Antepartum Labor Evaluation Frequency: S. NERISSA Monitor Mode: External Pattern: Normal: <= 5 Contractions in 10 Minutes Resting Tone [place]: Relaxed Heart Rate FHR Baseline Rate: 135 Monitor Mode: External US Variability: Moderate 6-25 bpm Accelerations: 15X15 Decelerations: None Category: Category I Pain Presence: None/Denies Pain Type: N/A Datetime: 09/16/2018 16:05 Comments: BACK ON MONITOR AFTER MONITOR Datetime: 09/16/2018 15:07 Stage of : Antepartum Labor Evaluation Frequency: 0 Monitor Mode: External Pattern: Normal: <= 5 Contractions in 10 Minutes Resting Tone [place]: Relaxed Heart Rate FHR Baseline Rate: 145 Monitor Mode: External US Variability: Moderate 6-25 bpm Accelerations: 15X15 Decelerations: None Category: Category I Pain Presence: None/Denies Pain Type: N/A Datetime: 09/16/2018 14:43 Bedside Blood Glucose: 133 Datetime: 09/16/2018 14:17 Stage of : Antepartum Labor Evaluation Frequency: 0 Monitor Mode: External Pattern: Normal: <= 5 Contractions in 10 Minutes Resting Tone [place]: Relaxed Heart Rate FHR Baseline Rate: 145 Monitor Mode: External US Variability: Absent - Undetectable Accelerations: 15X15 Decelerations: None Category: Category I Pain Presence: None/Denies Pain Type: N/A Datetime: 09/16/2018 13:01 Stage of : Antepartum Labor Evaluation Frequency: 0 Pattern: Normal: <= 5 Contractions in 10 Minutes Resting Tone [place]: Relaxed Comments: US ADJUSTED Pain Presence: None/Denies Pain Type: N/A Datetime: 09/16/2018 12:19 Comments: LOSS OFCONTACT PATIENT SITTING UP EATING LUNCH Datetime: 09/16/2018 12:15 Stage of : Antepartum Labor Evaluation Frequency: 0 Monitor Mode: External Pattern: Normal: <= 5 Contractions in 10 Minutes Resting Tone [place]: Relaxed Heart Rate FHR Baseline Rate: 135 Monitor Mode: External US Variability: Moderate 6-25 bpm Accelerations: 15X15 Decelerations: None Category: Category I Pain Presence: None/Denies Pain Type: N/A Datetime: 09/16/2018 11:06 Stage of : Antepartum Labor Evaluation Frequency: 0 Monitor Mode: External Pattern: Normal: <= 5 Contractions in 10 Minutes Resting Tone [place]: Relaxed Heart Rate FHR Baseline Rate: 135 Monitor Mode: External US Variability: Moderate 6-25 bpm Accelerations: 15X15 Decelerations: None Category: Category I Pain Presence: None/Denies Pain Type: N/A Datetime: 09/16/2018 10:13 Bedside Blood Glucose: 98 Datetime: 09/16/2018 10:07 Stage of : Antepartum Labor Evaluation Frequency: X1 Monitor Mode: External Duration (sec)2399: 50 Pattern: Normal: <= 5 Contractions in 10 Minutes Resting Tone [place]: Relaxed Heart Rate FHR Baseline Rate: 135 Monitor Mode: External US Variability: Moderate 6-25 bpm Accelerations: 15X15 Decelerations: None Category: Category I Pain Presence: None/Denies Pain Type: N/A Datetime: 09/16/2018 09:14 Stage of : Antepartum Labor Evaluation Frequency: 0 Monitor Mode: External Pattern: Normal: <= 5 Contractions in 10 Minutes Resting Tone [place]: Relaxed Heart Rate FHR Baseline Rate: 135 Monitor Mode: External US Variability: Moderate 6-25 bpm Accelerations: 10X10 Decelerations: None Category: Category III Pain Presence: None/Denies Pain Type: N/A Datetime: 09/16/2018 07:43 Bedside Blood Glucose: 84 Category: Category II Datetime: 09/16/2018 07:28 Stage of : Antepartum Assessment Type: Ongoing Assessment Maternal Assessment Level of Consciousness: Fully Conscious DTR's/Clonus: DTRs 2+; No Clonus Headache: Denies Blurred Vision: No Respiratory Effort: Unlabored; Regular Rhythm; Equal Expansion Breath Sounds, Left: Clear and Equal Breath Sounds, Right: Clear and Equal Nausea/Vomiting: Denies RUQ Epigastric Pain: Denies Lower Extremities Edema: None Degree: None Upper Extremities Edema: None Degree: None Facial Edema: None Temperature Route: Axillary Fall Risk Assessment History of Falling: (0) No Secondary Diagnosis: (0) No Ambulatory Aid: (0) Bedrest/Nurse Assist IV Therapy: (0) No Gait: (0) Normal/Bedrest/Immobile Mental Status: (0) Oriented to Own Ability Fall Score: 0 Fall Risk Score Definition: No Risk: No action required Labor Evaluation Frequency: 0 Monitor Mode: External Heart Rate FHR Baseline Rate: 145 Monitor Mode: External US Variability: Moderate 6-25 bpm Accelerations: 15X15 Decelerations: None Category: Category I Pain Assessment Pain Scale: 0 Pain Presence: None/Denies Pain Goal: 0 Datetime: 09/16/2018 07:00 Stage of : Antepartum Labor Evaluation Frequency: x1 IN ONE HOUR Monitor Mode: External Duration (sec)2399: 70 Quality: Mild Resting Tone [place]: Relaxed Heart Rate FHR Baseline Rate: 135 Monitor Mode: External US Variability: Moderate 6-25 bpm Accelerations: 15X15 Decelerations: None Pain Assessment Pain Scale: 0 Pain Presence: None/Denies Pain Type: N/A Pain Goal: 3 Datetime: 09/16/2018 06:00 Stage of : Antepartum Labor Evaluation Frequency: OCCASIONAL Monitor Mode: External Duration (sec)2399: 40-60 Quality: Mild Resting Tone [place]: Relaxed Heart Rate FHR Baseline Rate: 125 Monitor Mode: External US Variability: Moderate 6-25 bpm Accelerations: 15X15 Decelerations: None Pain Assessment Pain Scale: 0 Pain Presence: None/Denies Pain Type: N/A Pain Goal: 3 Datetime: 09/16/2018 05:00 Stage of : Antepartum Labor Evaluation Frequency: OCCASIONAL Monitor Mode: External Duration (sec)2399: 60-120 Quality: Mild Resting Tone [place]: Relaxed Heart Rate FHR Baseline Rate: 135 Monitor Mode: External US Variability: Moderate 6-25 bpm Accelerations: 15X15 Decelerations: None Datetime: 09/16/2018 04:00 Stage of : Antepartum Labor Evaluation Frequency: OCCASIONAL Monitor Mode: External Duration (sec)2399: 40-60 Quality: Mild Resting Tone [place]: Relaxed Heart Rate FHR Baseline Rate: 135 Monitor Mode: External US Variability: Moderate 6-25 bpm Accelerations: 15X15 Decelerations: None Comments: SOME LOSS OF CONTACT DUE TO PT CHANGING POSITIONS Datetime: 09/16/2018 03:00 Stage of : Antepartum Labor Evaluation Frequency: OCCASIONAL Monitor Mode: External Duration (sec)2399: 40-60 Quality: Mild Resting Tone [place]: Relaxed Heart Rate FHR Baseline Rate: 135 Monitor Mode: External US Variability: Moderate 6-25 bpm Accelerations: 15X15 Decelerations: None Datetime: 09/16/2018 02:00 Stage of : Antepartum Labor Evaluation Frequency: X3 IN ONE HOUR Monitor Mode: External Duration (sec)2399: 60-70 Quality: Mild Resting Tone [place]: Relaxed Heart Rate FHR Baseline Rate: 135 Monitor Mode: External US Variability: Moderate 6-25 bpm Accelerations: 15X15 Decelerations: None Category: Category I Datetime: 09/16/2018 01:00 Labor Evaluation Frequency: 0 Monitor Mode: External Resting Tone [place]: Relaxed Heart Rate FHR Baseline Rate: 135 Monitor Mode: External US Variability: Moderate 6-25 bpm Accelerations: 15X15 Decelerations: None Category: Category I Datetime: 09/16/2018 00:00 Labor Evaluation Frequency: OCCASS Monitor Mode: External Duration (sec)2399: 40-60 Quality: Mild Pattern: Normal: <= 5 Contractions in 10 Minutes Resting Tone [place]: Relaxed Heart Rate FHR Baseline Rate: 135 Monitor Mode: External US Variability: Moderate 6-25 bpm Accelerations: 15X15 Decelerations: None Category: Category I Pain Presence: None/Denies Datetime: 09/15/2018 23:00 Labor Evaluation Frequency: X4 Monitor Mode: External Duration (sec)2399: 40-80 Quality: Mild Resting Tone [place]: Relaxed Heart Rate FHR Baseline Rate: 135 Monitor Mode: External US Variability: Moderate 6-25 bpm Accelerations: 15X15 Decelerations: None Category: Category I Comments: LOSS OF CONTACT AT TIMES PT WAS IN HER SIDE. Pain Presence: None/Denies Datetime: 09/15/2018 22:02 Bedside Blood Glucose: 110 Datetime: 09/15/2018 22:00 Labor Evaluation Frequency: IRREG Monitor Mode: External Duration (sec)2399: 50-80 Quality: Mild Pattern: Normal: <= 5 Contractions in 10 Minutes Resting Tone [place]: Relaxed Heart Rate FHR Baseline Rate: 140 Monitor Mode: External US Variability: Moderate 6-25 bpm Accelerations: 15X15 Decelerations: Variable Category: Category II Datetime: 09/15/2018 21:00 Labor Evaluation Frequency: IRREG Monitor Mode: External Duration (sec)2399: 50-60 Quality: Mild Pattern: Normal: <= 5 Contractions in 10 Minutes Resting Tone [place]: Relaxed Heart Rate FHR Baseline Rate: 135 Monitor Mode: External US Variability: Moderate 6-25 bpm Accelerations: 15X15 Decelerations: None Category: Category I Datetime: 09/15/2018 20:00 Labor Evaluation Frequency: 4-8 Monitor Mode: External Duration (sec)2399: 50-70 Quality: Mild Pattern: Normal: <= 5 Contractions in 10 Minutes Resting Tone [place]: Relaxed Heart Rate FHR Baseline Rate: 135 Monitor Mode: External US Variability: Moderate 6-25 bpm Accelerations: 15X15 Decelerations: None Category: Category I Datetime: 09/15/2018 19:33 Stage of : Labor Assessment Type: Ongoing Assessment Maternal Assessment Level of Consciousness: Fully Conscious DTR's/Clonus: DTRs 2+; No Clonus Headache: Denies Blurred Vision: No Respiratory Effort: Unlabored; Regular Rhythm; Equal Expansion Breath Sounds, Left: Clear and Equal Breath Sounds, Right: Clear and Equal Nausea/Vomiting: Denies RUQ Epigastric Pain: Denies Lower Extremities Edema: None Degree: None Upper Extremities Edema: None Degree: None Facial Edema: None Temperature Route: Oral Fall Risk Assessment History of Falling: (0) No Secondary Diagnosis: (0) No Ambulatory Aid: (0) Bedrest/Nurse Assist IV Therapy: (20) Yes Gait: (0) Normal/Bedrest/Immobile Mental Status: (0) Oriented to Own Ability Fall Score: 20 Fall Risk Score Definition: No Risk: No action required Pain Assessment Pain Scale: 0 Pain Presence: None/Denies Pain Type: N/A Pain Goal: 3 Datetime: 09/15/2018 18:59 Labor Evaluation Frequency: x2 Monitor Mode: External Duration (sec)2399: 50-70 Quality: Mild Pattern: Normal: <= 5 Contractions in 10 Minutes Resting Tone [place]: Relaxed Contraction Comments: x2 UC during this hour Heart Rate FHR Baseline Rate: 140 Monitor Mode: External US Variability: Moderate 6-25 bpm Accelerations: 15X15 Decelerations: None Category: Category I Pain Presence: None/Denies Datetime: 09/15/2018 18:07 Temperature Route: Oral Labor Evaluation Frequency: x2 Monitor Mode: External Duration (sec)2399: 60-80 Quality: Mild Pattern: Normal: <= 5 Contractions in 10 Minutes Resting Tone [place]: Relaxed Contraction Comments: x2 UC noted this hour Heart Rate FHR Baseline Rate: 140 Monitor Mode: External US Variability: Moderate 6-25 bpm Accelerations: 15X15 Decelerations: None Category: Category I Pain Presence: None/Denies Datetime: 09/15/2018 17:07 Labor Evaluation Frequency: x4 Monitor Mode: External Duration (sec)2399: 60 Quality: Mild Pattern: Normal: <= 5 Contractions in 10 Minutes Resting Tone [place]: Relaxed Contraction Comments: x4 UC noted in this hour Heart Rate FHR Baseline Rate: 140 Monitor Mode: External US Variability: Moderate 6-25 bpm Accelerations: 15X15 Decelerations: None Category: Category I Pain Presence: None/Denies Datetime: 09/15/2018 16:07 Labor Evaluation Frequency: x1 Monitor Mode: External Duration (sec)2399: 50 Quality: Mild Pattern: Normal: <= 5 Contractions in 10 Minutes Resting Tone [place]: Relaxed Contraction Comments: 1 UC noted this hour Heart Rate FHR Baseline Rate: 135 Monitor Mode: External US Variability: Moderate 6-25 bpm Accelerations: 15X15 Decelerations: None Category: Category I Pain Presence: None/Denies Datetime: 09/15/2018 15:07 Labor Evaluation Frequency: x1 Monitor Mode: External Duration (sec)2399: 50 Quality: Mild Pattern: Normal: <= 5 Contractions in 10 Minutes Resting Tone [place]: Relaxed Contraction Comments: x1 noted in this hour Heart Rate FHR Baseline Rate: 140 Monitor Mode: External US Variability: Moderate 6-25 bpm Accelerations: 15X15 Decelerations: None Pain Presence: None/Denies Datetime: 09/15/2018 14:07 Temperature Route: Oral Labor Evaluation Frequency: x3 Monitor Mode: External Duration (sec)2399: 70-100 Quality: Mild Pattern: Normal: <= 5 Contractions in 10 Minutes Resting Tone [place]: Relaxed Contraction Comments: x3 noted during this hour Heart Rate FHR Baseline Rate: 140 Monitor Mode: External US Variability: Moderate 6-25 bpm Accelerations: 15X15 Decelerations: None Category: Category I Pain Presence: None/Denies Datetime: 09/15/2018 13:08 Labor Evaluation Frequency: x2 Monitor Mode: External Duration (sec)2399: 90-110 Quality: Mild Pattern: Normal: <= 5 Contractions in 10 Minutes Resting Tone [place]: Relaxed Contraction Comments: x2 UC noted in this hour Heart Rate FHR Baseline Rate: 140 Monitor Mode: External US Variability: Moderate 6-25 bpm Accelerations: 15X15 Decelerations: None Category: Category I Pain Presence: None/Denies Datetime: 09/15/2018 12:09 Monitor Mode: External Quality: Mild Pattern: Normal: <= 5 Contractions in 10 Minutes Resting Tone [place]: Relaxed Contraction Comments: Uterine irritability noted Heart Rate FHR Baseline Rate: 140 Monitor Mode: External US FHR Baseline Changes: No Baseline Change Variability: Minimal - Undetectable to <=5 bpm Accelerations: 15X15 Decelerations: None Category: Category II Pain Presence: None/Denies Vaginal Exam Dilatation (cms): 1.0 Effacement (%): 50 Station: -3 Exam By: Kwan Parks RN Membrane Status: Intact Datetime: 09/15/2018 11:41 Labor Evaluation Frequency: x2 UC noted in last hour Monitor Mode: External Duration (sec)2399: 50 Quality: Mild Pattern: Normal: <= 5 Contractions in 10 Minutes Resting Tone [place]: Relaxed Contraction Comments: Uterine irritability noted Heart Rate FHR Baseline Rate: 140 Monitor Mode: External US FHR Baseline Changes: No Baseline Change Variability: Moderate 6-25 bpm Accelerations: 15X15 Decelerations: None Category: Category I Pain Presence: None/Denies Datetime: 09/15/2018 10:32 Stage of : Labor Assessment Type: Admission Assessment Time of Arrival: 09/15/2018 10:32 EGA: 37.0 Arrived By: Ambulatory Arrived From: Home Vaginal Bleeding: None Maternal Assessment Level of Consciousness: Fully Conscious DTR's/Clonus: DTRs 2+; No Clonus Headache: Denies Blurred Vision: No Respiratory Effort: Unlabored; Regular Rhythm; Equal Expansion Breath Sounds, Left: Clear and Equal Breath Sounds, Right: Clear and Equal Nausea/Vomiting: Denies RUQ Epigastric Pain: Denies Lower Extremities Edema: Bilateral Lower Extremities Degree: Trace Upper Extremities Edema: Bilateral Upper Extremities Degree: Trace Facial Edema: None Fall Risk Assessment History of Falling: (0) No Secondary Diagnosis: (0) No Ambulatory Aid: (0) Bedrest/Nurse Assist IV Therapy: (0) No Gait: (0) Normal/Bedrest/Immobile Mental Status: (0) Oriented to Own Ability Fall Score: 0 Fall Risk Score Definition: No Risk: No action required Pain Presence: None/Denies Datetime: 07/08/2018 08:54 Fall Score: 0 Fall Risk Score Definition: No Risk: No action required Datetime: 07/08/2018 08:53 EGA: 27.1
[2018-09-19] MEDS ORDERED: MISOPROSTOL 200 MCG TAB PR PRN (14:00)
[2018-09-19] MEDS ORDERED: LIDOCAINE 1% (MPF) 30 ML INJ INJ PRN (14:00)
[2018-09-19] MEDS ORDERED: METHYLERGONOVINE 0.2 MG INJ IM PRN (14:00)
[2018-09-19] MEDS ORDERED: CARBOPROST 250 MCG INJ IM PRN (14:00)
[2018-09-19] MEDS ORDERED: OXYTOCIN 30 UNITS/LR 500 ML IV PRN (14:00)
[2018-09-19] MEDS ORDERED: IBUPROFEN 600 MG TAB PO PRN (14:00)
[2018-09-19] MEDS ORDERED: OXYTOCIN 30 UNITS/LR 500 ML IV SCH ×3 (14:00)
[2018-09-19] MEDS ORDERED: BUTORPHANOL 2 MG INJ IV PRN (14:00)
[2018-09-19] MEDS: LACTATED RINGER'S 1,000 ML IV SCH ×3 (17:32→23:45)
--- NOTE | 2018-09-19 19:50 | PREOPHP ---
DATE OF ADMISSION: 09/19/2018 HISTORY OF PRESENT ILLNESS: Ms. Yanet Oh is a 33-year-old 2, para 0, EDC of 12/2018 intrauterine at 37 weeks and 4 days gestational age, presented to triage for her re gular nonstress test secondary to her history of elevated liver enzymes. She complains of decreased movement with uterine contractions. She had a biophysical profile performed with the findings of 6/8, -2 for breathing. After explaining the risks, benefits and alternatives, the patient agreed to be induced. PAST MEDICAL HISTORY: GDMA. MEDICATIONS: 1. vitamins. 2. Glyburide. OBSTETRICAL HISTORY: Times 1 termination of . PAST SURGICAL HISTORY: None. GYNECOLOGIC HISTORY: 12, regular 3 to 4 days. Denies any sexually transmitted disease. Sexually ac tive with 1 partner. SOCIAL HISTORY: Denies any smoking, drugs or alcohol. FAMILY HISTORY: None. REVIEW OF SYSTEMS: All within normal except history of present illness. PHYSICAL EXAMINATION: HEENT: Within normal. LUNGS: CTA bilateral. CARDIOVASCULAR: S1, S2. Regular rate and rhythm. ABDOMEN: Gravid, nontender. Negative CVA bilateral. EXTREMITIES: Negative edema. No calf tenderness. PELVIC: Vaginal exam: 1 to 2 cm dilated, 80% effaced, -2 station. heart tracing category 1. Tocometer: Irregular contractions. LABORATORY DATA: Significant labs: AST 48, ALT 78. SHOSHANA of 9.4. ASSESSMENT: 1. Intrauterine at 37 weeks and 4 days' gestational age. 2. Decreased movement. 3. Mildly elevated liver enzymes. 4. Decreased biophysical profile. 5. Gestational diabetes mellitus 2. PLAN: Admit patient for induction with Pitocin. Risks, benefits and alternatives were explained. A ll questions were answered. Dictated By: TIARA HUTTON MD ME/JABARI Conf#: [id number] DID#: [id number]
[2018-09-19] MEDS ORDERED: FENTAnyl 2MCG/ML-ROPIV 0.2% 100 ML ONE (23:21)
--- NOTE | 2018-09-19 23:46 | PREAC ---
Date/Time of Note Date/Time of Note DATE: 09/19/18 TIME: 23:44 Anesthesia Eval and Record Evaluation Time Pre-Procedure Interview DATE: 09/19/18 TIME: 23:44 Age 33 Sex female NPO: 8 hrs Preoperative diagnosis IUP Planned procedure L&D Epidural Past Medical History Past Medical History: Includes Cardio: Dyslipidemia Endo: Diabetes GI: Morbid obesity Surgery & Anesthesia Issues No known issue Meds Anticoagulation: No Beta Stephanie within 24 hr: No Reason Beta Stephanie not given: Pt. not on B-Stephanie Reported Medications Vit No.124/Iron/FA ( Vitamin Tablet) 1 Each Tablet, 1 EACH PO DAILY, TAB 07/08/18 Discontinued Scripts Acetaminophen* (Tylophen*) 500 Mg Capsule, 1 CAP PO Q6H PRN for PAIN AND OR ELEVATED TEMP, #20 CAP Prov:AARON COSBY PA-C 03/25/17 Current Medications Lactated Ringer's 1,000 ml @ 125 mls/hr Q8H IV Last administered on 09/19/18at 22:46; Admin Dose 125 MLS/HR; Start 09/19/18 at 13:38 Butorphanol Tartrate (Stadol) 2 mg Q2H PRN IV PAIN; Start 09/19/18 at 14:00 Lidocaine (Xylocaine 1% (Mpf)) 30 ml ONCE PRN INJ EPISIOTOMY; Start 09/19/18 at 14:00 Oxytocin/Lactated Ringer's 500 ml @ 500 mls/hr ONCE POST IV ; Start 09/19/18 at 14:00 Oxytocin/Lactated Ringer's 500 ml @ 125 mls/hr POST IV ; Start 09/19/18 at 14:00 Ibuprofen (Motrin) 600 mg ONCE PRN PO PAIN LEVEL 1-5; Start 09/19/18 at 14:00 Oxytocin/Lactated Ringer's 500 ml @ 0 mls/hr ONCE PRN IV VAGINAL BLEEDING; Start 09/19/18 at 14:00 Methylergonovine Maleate (Methergine) 0.2 mg ONCE PRN IM VAGINAL BLEEDING; Start 09/19/18 at 14:00 Carboprost Tromethamine (Hemabate) 250 mcg ONCE PRN IM VAGINAL BLEEDING; Start 09/19/18 at 14:00 Misoprostol (Cytotec) 1,000 mcg ONCE PRN DE VAGINAL BLEEDING; Start 09/19/18 at 14:00 Oxytocin/Lactated Ringer's 500 ml @ 0 mls/hr FOR INDUCTION IV Last administered on 09/19/18at 17:31; Admin Dose 1 MLS/HR; Start 09/19/18 at 14:00 Meds reviewed: Yes Allergies Coded Allergies: No Known Allergy (Unverified , 03/27/17) Allergies Reviewed: Yes Labs/Studies Labs Reviewed: Reviewed by anesthesiologist Result Diagram: 09/19/18 1348 09/19/18 1348 Laboratory Tests 09/19/18 13:48 Blood Bank Test 09/19/18 13:41 Antibody Screen NEGATIVE Blood Type O POSITIVE Rh Immune Globulin Candidate NO test: Positive Studies: ECG Pre-procedure Exam Last vitals Vital Signs Date Temp Pulse Resp B/P (MAP) Pulse Ox O2 O2 Flow FiO2 Time Delivery Rate 09/19/18 98.9 85 132/89 Room Air 11:11 (103) Airway: Adequate mouth opening, Adequate thyromental dist Mallampati: Mallampati II Teeth: Normal Lung: Normal Heart: Normal ASA Physical Status ASA physical status: 3 Emergency: None Planned Anesthetic Neuraxial: Epidural Planned Pain Management Epidural Pre-operative Attestations Prior to commencing anesthesia and surgery, the patient was re-evaluated, there was verification of: *The patient's identity *The results of appropriate recent lab work and preoperative vital signs *The above evaluation not changing prior to induction *Anesthetic plan, risk benefits, alternative and complications discussed with patient/family; questions answered; patient/family understands, accepts and wishes to proceed. ADITYA LANCASTER MD Sep 19, 2018 23:46
[2018-09-20] MEDS ORDERED: DIPHENHYDRAMINE 50 MG INJ IV PRN
[2018-09-20] MEDS ORDERED: NALOXONE (0.4 MG/ML) INJ IV PRN
[2018-09-20] MEDS ORDERED: FENTAnyl 2MCG/ML-ROPIV 0.2% 100 ML BAG EPI SCH
[2018-09-20] MEDS ORDERED: ACETAMINOPHEN 325 MG TAB PO PRN ×2 (06:30→11:30)
--- NOTE | 2018-09-20 11:04 | LDN ---
Date/Time of Note Date/Time of Note DATE: 09/20/18 TIME: 11:03 Delivery Summary Weeks of Gestation 37 Placenta Delivered: Spontaneously Meconium: none Episiotomy: No Laceration repair: 1st degree vaginal lacereation repair with 3-0 chromic Anesthesia type: Epidural Estimated blood loss: 200 Sponge & Needle done & correct: Yes All needle counts correct: Yes Any foreign bodies felt in the: No Delivery Information Sex Infant Sex: female Apgars 1 Minute: 9 5 Minute: 9 Suctioning Nose & mouth suctioned at levon: No Delee suction performed: No Umbilical Cord Umbilical cord with: 3 Vessels Cord presentations: true knot Cord Blood was obtained: Yes (X 1) TIARA HUTTON MD Sep 20, 2018 11:04
[2018-09-20] MEDS ORDERED: OXYTOCIN 30 UNITS/LR 500 ML IV SCH (11:05)
[2018-09-20] MEDS ORDERED: MISOPROSTOL 200 MCG TAB PR PRN (11:30)
[2018-09-20] MEDS ORDERED: SENNA/DOCUSATE NA (8.6MG/50MG) TAB PO PRN (11:30)
[2018-09-20] MEDS ORDERED: CARBOPROST 250 MCG INJ IM PRN (11:30)
[2018-09-20] MEDS ORDERED: DIPHENHYDRAMINE 25 MG CAP PO PRN (11:30)
[2018-09-20] MEDS ORDERED: METHYLERGONOVINE 0.2 MG INJ IM PRN (11:30)
[2018-09-20] MEDS ORDERED: ONDANSETRON 4 MG INJ IV PRN ×2 (11:30)
[2018-09-20] MEDS ORDERED: DIBUCAINE 1% 30 GM OINT TOP PRN (11:30)
[2018-09-20] MEDS ORDERED: NACL 0.9% 3 ML SYG IV SCH (11:30)
[2018-09-20] MEDS ORDERED: LANOLIN HPA 1 PKT TOP PRN (11:30)
[2018-09-20] MEDS ORDERED: OXYTOCIN 30 UNITS/LR 500 ML IV PRN (11:30)
[2018-09-20] MEDS ORDERED: OXYCODONE/ASPIRIN (4.88/325) TAB PO PRN ×2 (11:30)
[2018-09-20] MEDS ORDERED: BENZOCAINE 20% 56 ML SPRAY TOP PRN (11:30)
[2018-09-20 12:40] VITALS: BP 122/60; PULSE 80; RESP 18
[2018-09-20] MEDS: WITCH HAZEL/GLYCERIN PAD PR PRN (13:03)
[2018-09-20] MEDS: IBUPROFEN 600 MG TAB PO SCH ×2 (13:03→17:47)
[2018-09-20] MEDS: ACCU-CHEK XX SCH ×2 (13:22→20:05)
[2018-09-20 15:47] VITALS: BP 118/74; PULSE 71; RESP 18
[2018-09-20 20:00] VITALS: BP 121/68; PULSE 76; RESP 16
[2018-09-20] MEDS: SENNA/DOCUSATE NA (8.6MG/50MG) TAB PO SCH (20:55)
[2018-09-21] VITALS: BP 117/56; PULSE 80; RESP 18
[2018-09-21] MEDS: IBUPROFEN 600 MG TAB PO SCH ×4 (00:07→17:21)
[2018-09-21 04:30] VITALS: BP 99/62; PULSE 68; RESP 18
[2018-09-21] MEDS: ACCU-CHEK XX SCH ×4 (08:00→18:13)
[2018-09-21 08:59] VITALS: BP 104/69; PULSE 74; RESP 16
--- NOTE | 2018-09-21 10:08 | PD.PPDC ---
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
--- NOTE | 2018-09-21 10:11 | DS ---
Date/Time of Note Date/Time of Note DATE: 09/21/18 TIME: 10:09 Obstetrical Discharge Record Final Diagnosis Final Diagnosis: Term delivered Vaginal Delivery Obstetrical Delivery: Spontaneous, Laceration, Repaired Complications Other (decrease movement/ low bpp) Augmentation: No Induction: Yes Rupture of Membranes: No Condition on Discharge Physical Assessment Last Vitals: stable febrile Voiding: Yes Bowel Movement: Yes Breast: Soft, non-tender, Filling Fundus: Firm Abdomen and Incision: soft nt Calf Tenderness: No Patient Condition: Fair TIARA HUTTON MD Sep 21, 2018 10:11
[2018-09-21] MEDS: SENNA/DOCUSATE NA (8.6MG/50MG) TAB PO SCH ×2 (10:28→21:01)
[2018-09-21 15:58] VITALS: BP 116/69; PULSE 68; RESP 20
[2018-09-21 19:55] VITALS: BP 126/68; PULSE 86; RESP 18
[2018-09-22] MEDS: IBUPROFEN 600 MG TAB PO SCH ×2 (00:02→06:01)
[2018-09-22] MEDS: WITCH HAZEL/GLYCERIN PAD PR PRN (00:12)
[2018-09-22 04:30] VITALS: BP 107/59; PULSE 61; RESP 16
[2018-09-22] MEDS: ACCU-CHEK XX SCH ×2 (07:30→10:05)
[2018-09-22 08:51] VITALS: BP_SYST 110; BP_SYST 118; BP_DIAS 61; BP_DIAS 67; PULSE 66; PULSE 80; RESP 20
[2018-09-22] MEDS: SENNA/DOCUSATE NA (8.6MG/50MG) TAB PO SCH (09:00)
--- NOTE | 2018-09-23 07:48 | PAC ---
Date/Time of Note Date/Time of Note DATE: 09/23/18 TIME: 07:47 Post-Anesthesia Notes Post-Anesthesia Note Last documented vital signs Vital Signs Date Temp Pulse Resp B/P (MAP) Pulse Ox O2 O2 Flow FiO2 Time Delivery Rate 09/22/18 98.3 80 20 118/61 Room Air 08:51 (80) Activity: WNL Respiratory function: WNL Cardiovascular function: WNL Mental status: Baseline Pain reasonably controlled: Yes Hydration appropriate: Yes Nausea/Vomiting absent: Yes Comments BP:115/65, pulse:87, spo2:100%, T:98,6 ADITYA LANCASTER MD Sep 23, 2018 07:48
== END 2018-09-22 10:40 | disposition home or self-care (01) | DRG 806 ==
LOC: OBT 10:57 → L-D 10:57 → OBT 13:33 → PP1 09-20 12:30
PROVIDERS: ADMIT Obstetrics & Gynecology; ATTEND Obstetrics & Gynecology
PROC: 10E0XZZ Delivery of Products of Conception, External Approach (ICD-10-PCS; principal; 2018-09-20)
PROC: 0UQGXZZ Repair Vagina, External Approach (ICD-10-PCS; 2018-09-20)
DX: O24.429 Gestational diabetes mellitus in childbirth, unspecified control (principal); O71.4 Obstetric high vaginal laceration alone; Z37.0 Single live birth; O69.2XX0 Labor and delivery complicated by other cord entanglement, with compression, not applicable or unspecified; O36.8130 Decreased fetal movements, third trimester, not applicable or unspecified; Z3A.37 37 weeks gestation of pregnancy
CPT/HCPCS: 62319; 76818; 80053; 81003; 82962; 84560; 85025; 85384; 85610; 85730; 86592; 86850; 86900; 86901; 87340; 99464; G0463; J2590; J3010; J7120